=== PATIENT | male | born 1990 | race Caucasian/White ===

== ENCOUNTER 2025-02-18 14:12 | Outpatient (OUT) | payer BC, SELFPAY ==
--- OUTSIDE RECORDS SUMMARY | 2024-07-10 12:00 | XMS_ITS ---
Author Organization [facility] Address [address] [place] [address] Care Team Providers Care Sizer Machine Name Role Phone Giacomo Krystin Primary Care Provider REASON FOR VISIT 3 month f/u Encounters Encounter Location Date Provider Diagnosis [facility] [address] [place] [address] 07/10/2024 Krystin Gooden Plan Of Treatment Next Appt Details Provider Name:Krystin Samuelsethanmauri ine, 06/08/2025 04:00:00 PM, [address] [facility] [place], [address], Progress Notes * ALEJANDRINA BOWMAN ADOB:01/1990 (35 yo M)Acc No.[id number]:07/10/2024 Behavioral Health Patient: Merrill ALEJANDRINA PECK Appointment Provider: VARGHESE DARLING :1990 A ge:34 Y S ex:Male Date:07/10/2024 Address:[address] [place], [place] [id number] Subjective: * Chief Complaints: * 1 . 3 month f/u. * Medical History: Objective: * Vitals: Assessment: Plan: * Treatment: * Images: * Electronic signature of VALERIE Church i on 02/18/2025 at 02:14 PM EDT Sign off status: Pending * Appointment Provider: VALERIE DARLING-BC Date: 1 Generated for Bereket ruelas/Juanita/Edna on: 0 02/18/2025 02:14 PM EDT
--- OUTSIDE RECORDS SUMMARY | 2024-11-04 12:00 | XMS_ITS ---
Author Organization [facility] in [place] Address [address] [place] [address] Care Team Providers Care Bark Peeler Name Role Phone Angela Morris Primary Care Provider [phone] Allergies No Known Allergies Reason For Referral Reason nausea and vomiting over last year Diagnosis 1 Nausea & vomiting (R 11.2) Referral Organization [facility] Referring Provider First Name Angela Referring Provider Last Name Arturo Referring Provider Speciality Family Med [facility] Referred Provider Kendra Fang Referred Provider Specialty Gastroentero logy Referral Priority Routine REASON FOR VISIT 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., Having issues with vomiting off and on since November 2023 Medications Medication SIG (Take, Route, Fr equency, Duration) Notes Start Date End Date Status Omeprazole 20 MG 1 capsule 1/2 to 1 h our before morning meal Orally Once a day for 30 days 11/04/2024 Active Ondansetron HCl 4 MG 1 tablet Orally BID prn for 14 days 11/04/2024 Active Zoloft 25 MG 1 tablet Orally Once a day Active Social History Tobacco Use: Social History Observation Description Date Details (start date - stop date) Never Smoker NA - NA Tobacco Control (Standard) Question Answer Notes Tobacco use: Nonsmoker AUDIT-C (Standard) Question Answer Notes Did you have a drink containing alcohol in the p ast year? No Points 0 Interpretation Negative Problems Problem Type SNOMED Code ICD Code Onset Dates Problem Status W/U Status Risk Notes Problem Anxiety (01280222) Anxiety (F41.9) Active confirmed Problem Arthritis (5966573) Arthritis (M19.90) Active confirmed Vital Signs Weight 187 lbs 11/04/2024 Height 68 in 11/04/2024 Blood pressure systolic 112 mm Hg 11/04/19 25 Blood pressure diastolic 68 mm Hg 025 BMI 28.43 kg/m2 11/04/2024 Encounters Encounter Location Date Provider Diagnosis [facility] [address] [place] [address] 11/04/2024 Angela Morris Nausea & vomiting R11.2 Assessments Encounter Date Diagnosis (ICD Code) Assessment Notes Treatment Notes Treatment Clinical Notes Section Notes 11/04/2024 Nausea & vomiting (ICD-10 - R11.2) GI referral work on diet, whole foods, less processed decrease caffeine , increase water Plan Of Treatment Medication Medication Name Sig Start Date Stop Date Notes Omeprazole 20 MG 1 capsule 1/2 to 1 h our before morning meal Orally Once a day for 30 days 11/04/2024 Ondansetron HCl 4 MG 1 tablet Orally BID prn for 14 days 0 11/04/2024 Treatment Notes Assessment Notes Nausea & vomiting GI referral work on diet, whole foods, less processed decrease caffeine , increase water Referrals Referral Date Details 11/04/2024 11/04/2024, nausea a nd vomiting over last year, Kendra Fang Next Appt Details Follow Up: 1 Year,prn, Reaso n: Progress Notes * Juarez BOWMANDOB: 8 (34 yo M)Acc No.[id number]:11/04/2024 New Patient Patient: Juarez CHAHAL Provider: Sherrell Morris ([facility]), RING BARKER OPERATOR :1990 A ge:34 Y S ex:Male Date:11/04/2024 Address:[address] [place], [place] [id number] Check In:03:43 PM ESTCheck O ut:04:16 PM EST Subjective: * Chief Complaints: * 1 . 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 2. Having issues with vomiting off and on since November 2023. * HPI: G eneral: N and V started November last year kind of went away last 3-4 months more noticeable throwing up once- twice at least every other day worse after eats but sometimes clear liquid no complaints of heartburn feels tense, and than feels nauseous, sometimes throws up sometimes standing still, taking sips water anxiety a lot in 2020 still on sertraline, he hasnt noticed difference, notices difference childhood trauma did go to counseling 2020, marital counseling 2019 and 2020 4 kids between 2 of them, doing well no marijuana use no stomach pains, cramping bad gas worse last 2 year or two couple BM day , soft formed home cooked dinner, lunch meat sandwich, chips , cookies, for lunch, some breakfast sandwiches from [employer], fast food mt dew , coffee, energy drink, a lot of caffeine no alcohol use doesnt have panic attacks, anxiety not overtaking life some depression, anger issues in past, has improved. D epression Screening: PHQ-9 L ittle interest or pleasure in doing things?Several days F eeling down, depressed, or hopeless S everal days T rouble falling or staying asleep, or sleeping too much S everal days F eeling tired or having little energy N ot at all P oor appetite or overeating N ot at all F eeling bad about yourself or that you are a failure, or have let yourself or your family down M ore than half the days T rouble concentrating on things, such as reading the newspaper or watching television N ot at all M oving or speaking so slowly that other people could have noticed; or the opposite, being so fidgety or restless that you have been moving around a lot more than usual N ot at all T houghts that you would be better off or of hurting yourself in some way S everal days (Consider Suicide Assessment Risk) T otal Score 6 I nterpretation M ild Depression * ROS: G eneral/Constitutional: Anxiety f eels tense at times related to nausea. F ever?denies. H eadache d enies. W eight loss d enies. O phthalmologic: Discharge d enies. E ye Pain d enies. I tching and redness d enies. E NT: Nasal discharge d enies. N manny congestion d enies.?Sore throat d enies. C ardiovascular: Chest tightness/ heavy pressure d enies. R apid heart rate d enies. S welling of extremities d enies. C hest pain d enies. ? R espiratory: Productive cough d enies. C hest pain d enies. C ough d enies. S hortness of breath d enies. W heezing d enies. ? G astrointestinal: Patient complaining of g as. A bdominal pain d enies. C onstipation d enies. D ecreased appetite d enies. D iarrhea d enies.?Nausea a dmits. V omiting a dmits. G enitourinary: Urinary incontinence d enies. P ainful urination d enies. M usculoskeletal: Back pain d enies. N elvira pain d enies. M uscle aches d enies. S kin: Rash d enies. S kin lesion(s) d enies. ? * Active Problem List F41.9 Anxiety Modified On:11/04/2024W/U Status:confirmed M19.90 Arthritis Modified On:11/04/2024/U Status:confirmed * Medical History: A nxiety, Arthritis. * Surgical History: r epair of club feet . * Family History: F ather: , diagnosed with Unspecified heart disease. M other: alive. P aternal Grandfather: , throat cancer. * Social History: T obacco Use: T obacco Control (Standard) T obacco use: N onsmoker D rug/Alcohol: A KENTRELL-C (Standard) D id you have a drink containing alcohol in the past year? N o P oints 0 I nterpretation N egative * Medications: T aking Zoloft(Sertraline HCl) 25 MG Tablet 1 tablet Orally Once a day , Medication List reviewed and reconciled with the patient * Allergies: N .K.D.A. Objective: * Vitals: W t:187lbs, Ht: 68 in, BP:112/68mm Hg, BMI:28.43Index, Ht-cm: 172.72 cm, Wt-k.82 kg. * Examination: G eneral Examinations: GENERAL APPEARANCE: a lert and oriented, i n no acute distress. EYES: c onjunctiva normal, sclera non-icteric. NOSE: n ormal external appearance. LUNGS: c lear to auscultation bilaterally. CARDIO: r egular rate and rhythm, S1, S2 normal. ABDOMEN: s oft, nontender,, active bowel sounds. MUSCULOSKELETAL: G ait and station normal. SKIN: w arm and dry. Assessment: * Assessment: 1. N ausea & vomiting - R11.2 (Primary) Plan: * Treatment: * Preventive Medicine: Screenings/Counseling: B IN ACTION PLAN Above Normal BMI Follow-up D ietary management education, guidance, and counseling See treatment section of progress note for complete details of management plan. * Follow Up: 1 Year,prn * * Electronically signed by Lisa Morris , AUTUMN, HUMAN RESOURCES OPERATIONS MANAGER.RING BARKER [id number] on 11/06/2024 at 11:59 AM EST Sign off status: Completed Visit Status: C HK (Check Out) true * Provider: Sherrell Morris ([facility]), RING BARKER OPERATOR Date: 0 11/04/2024 Generated for Sierrai jessenia/Juanita/eTransmitting on: 0 02/18/2025 02:15 PM EDT History and Physical Notes * HPI (History of Present Illness) Category Sub-Category Detail Notes Category Not es Depression Screening PHQ-9 Little inte rest or pleasure in doing things: Several days Feeling down, depressed, or hopeless: Se veral days Trouble falling or staying asleep, or sl eeping too much: Several days Feeling tired or having little energy: N ot at all Poor appetite or overeating: Not at all Feeling bad about yourself o r that you are a failure, or have let yourself or your family down: More than half the days Trouble concentrating on thi ngs, such as reading the newspaper or watching television: Not at all Moving or speaking so slowly that other people could have noticed; or the opposite, being so fidgety or restless that you have been moving around a lot more than usual: Not at all Thoughts that you would be b shanta off or of hurting yourself in some way: Several days (Consider Suicide Assessment Risk) Total Score: 6 Interpretation: Mild Depression General N and V started November last year kind of went away last 3-4 months more noticeable throwing up once- twice at least every other day worse after eats but sometimes clear liquid no complaints of heartburn feels tense, and than feels nauseous, sometimes throws up sometimes standing still, taking sips water anxiety a lot in 2020 still on sertraline, he hasnt noticed difference, notices difference childhood trauma did go to counseling 2020, marital counseling 2019 and 2020 4 kids between 2 of them, doing well no marijuana use no stomach pains, cramping bad gas worse last 2 year or two couple BM day , soft formed home cooked dinner, lunch meat sandwich, chips , cookies, for lunch, some breakfast sandwiches from [employer], fast food mt dew , coffee, energy drink, a lot of caffeine no alcohol use doesnt have panic attacks, anxiety not overtaking life some depression, anger issues in past, has improved Examination Category Sub-Category Detail Notes Category Not es General Examinations GENERAL APPEARANCE: alert a nd oriented, in no acute distress EYES: conjunctiva normal, sclera non-icteric EARS: NOSE: normal external appe arance THROAT: CARDIO: regular rate and rhy thm, S1, S2 normal LUNGS: clear to auscultatio n bilaterally ABDOMEN: soft, nontender,, ac tive bowel sounds SKIN: warm and dry BACK: MUSCULOSKELETAL: Gait and station nor mal LYMPH NODES: Consultation Request Notes Referral Date Referring Provider Referred Provider Not es 11/04/2024 Angela Morris Muhammad nausea a nd vomiting over last year
--- OUTSIDE RECORDS SUMMARY | 2025-02-10 05:08 | XMS_ITS ---
Author Organization [facility] in [place] Address [address] [place] [address] Care Team Providers Care Clerk Cashier Name Role Phone Angela Morris Primary Care Provider [phone] REASON FOR VISIT labs Encounters Encounter Location Date Provider Diagnosis [facility] [address] [facility] [place] [address] 02/10/2025 Angela Morris Plan Of Treatment No Information Progress Notes * Juarez LODOB: 8 (35 yo M)Acc No.[id number]:02/10/2025 Patient: Juarez CHAHAL :1990 A ge:35 Y S ex:Male Address:[address] [place] [address], [facility] Subjective: * Chief Complaints: * L abs * Medical History: * Surgical History: * Hospitalization/Major Diagno stic Procedure: * Medications: Objective: * Vitals: * Physical Examination: Assessment: Plan: * Treatment: * Procedure Codes: * true * Date: Generated for Printi ng/Faxing/eTransmitting on: 0 02/18/2025 02:14 PM EDT
--- OUTSIDE RECORDS SUMMARY | 2025-02-12 10:05 | XMS_ITS ---
Author Organization [facility] in [place] Address [address] [place] [address] Care Team Providers Care Network Operations Technician Name Role Phone Angela Morris Primary Care Provider [phone] REASON FOR VISIT labs Encounters Encounter Location Date Provider Diagnosis [facility] [address] [facility] [place] [address] 02/12/2025 Angela Morris Encounter for examination for admission to [facility] Z02.0 Assessments Encounter Date Diagnosis (ICD Code) Assessment Notes Treatment Notes Treatment Clinical Notes Section Notes 02/12/2025 Encounter for examination for admission to [facility] (ICD-10 - Z02.0) Plan Of Treatment Pending Test Test Name Order Date MMR Immunity (LC) 02/12/2025 Varicella Zoster Abs, IgG/IgM 02/12/2025 Hep B Surface Ab 02/12/2025 Progress Notes * WALLYJuarez PURIDOB: 8 (35 yo M)Acc No.[id number]:02/12/2025 Patient: Juarez CHAHAL :1990 A ge:35 Y S ex:Male Address:[address] [place] [address], [address] Subjective: * Chief Complaints: * L abs * Medical History: * Surgical History: * Hospitalization/Major Diagno stic Procedure: * Medications: Objective: * Vitals: * Physical Examination: Assessment: * Assessment: 1. E ncounter for examination for admission to [facility] - Z02.0 (Primary) ? Plan: * Treatment: * Procedure Codes: * true * Date: Generated for Bereket ruelas/Juanita/Edna on: 0 02/18/2025 02:15 PM EDT
--- OUTSIDE RECORDS SUMMARY | 2025-02-18 14:14 | XMS_ITS | Patient Health Record ---
Author Organization [facility] Address [address] [place] [address] Care Team Providers Care Stage Set Up Worker Name Role Phone Krystin Gooden Primary Care Provider [phone] Allergies No Known Allergies Reason For Referral No Information Medications Medication SIG (Take, Route, Frequency, Duration) Notes Start Date End Date Status Ondansetron HCl 4 MG TAKE 1 TABLET BY MO UTH TWICE A DAY NEEDED FOR 14 DAYS Oral for 18 Days Active Omeprazole 20 MG TAKE 1 CAPSULE BY MO UT EVERY DAY 1/2 TO 1 HOUR BEFORE MORNING MEAL FOR 30 DAYS Oral for 30 Days Active ARIPiprazole 5 MG TAKE 1 TABLET BY KIN EVERY DAY FOR 30 DAYS Orally Once a day for 30 day(s) Not-Taking traZODone HCl 50 MG 1 or 2 tablets at be dtime as needed Orally Once a day for 30 days 10/03/2023 Not-Taking Sertraline HCl 25 MG TAKE 1 TABLET BY MO UTH EVERY DAY for 30 days Active busPIRone HCl 7.5 MG 1 tablet Orally Twi ce a day for 30 days Active Social History Tobacco Use: Social History Observation Description Date Details (start date - stop date) Never Smoker NA - NA Tobacco Screen: Question Answer Notes Are you a: never smoker Alcohol Screening: Question Answer Notes Did you have a drink containing alcohol in the p ast year? No Points 0 Interpretation Negative Depression Screening (PHQ-9): Question Answer Notes Little interest or pleasure in doing things Not at all Feeling down, depressed, or hopeless Several day s Trouble falling or staying asleep, or sleeping t oo much Not at all Feeling tired or having little energy Not at all Poor appetite or overeating Not at all Feeling bad about yourself-o r that you are a failure or have let yourself or your family down Not at all Trouble concentrating on thi ngs, such as reading the newspaper or watching television Several days Moving or speaking so slowly that other people could have noticed. Or the opposite being so fidgety or restless that you have been moving around a lot more than usual Not at all Thoughts that you would be b shanta off , or of hurting yourself in some way Not at all Total Score 2 Intepretation Minimal Depression Problems Problem Type SNOMED Code ICD Code Onset Dates Problem Status W/U Status Risk Notes Problem [id number] Generalized anxiety disorder (F41.1) Active confirmed Vital Signs Heart Rate 77 /min 12/01/2024 Oximetry 98 % 12/01/2024 Blood pressure diastolic 81 mm Hg 12/01/2024 Height 68 in 12/01/2024 Blood pressure systolic 138 mm Hg 12/01/2024 Weight 188.4 lbs 12/01/2024 BMI 28.64 kg/m2 12/01/2024 Encounters Encounter Location Date Provider Diagnosis [facility] [address] [place] [address] 10/30/2024 Krystin Slingwine Generalized anxiety disorder F41.[address] [place] [address] 12/01/2024 Krystin Slingwine Generalized anxiety disorder F41.1 [facility] [address] [place] [address] 04/09/2024 Krystin Slingwine Generalized anxiety disorder F41.1 Assessments Encounter Date Diagnosis (ICD Code) Assessment Notes Treatment Notes Treatment Clinical Notes Section Notes 04/09/2024 Generalized anxiety disorder (ICD-10 - F41.1) 10/30/2024 Generalized anxiety disorder (ICD-10 - F41.1) 12/01/2024 Generalized anxiety disorder (ICD-10 - F41.1) Recommended treatment is: _ FDA approved medication for this age group include Selective Serotonin Reuptake Inhibitors (SSRI) and Selective Norepinephrine Reuptake Inhibitors (SNRI). . Selective serotonin reuptake inhibitors? can cause nausea, headache, upset stomach, diarrhea, constipation, anxiety, irritability, and sexual dysfunction. Buspar is a medication used for anxiety. The medication can cause dizziness, sedation, and restless. Please contact the office if you experience these symptoms. The medication typically takes 2-4 weeks to achieve efficacy. Made aware to contact office if symptoms worsen. . Please monitor for worsening of symptoms, especially suicidal ideations or morbid thoughts, and call office and or go to the emergency department immediately. Pt does not endorse exhibiting symptoms aligning with nancy. . The patient verbalizes understanding with all questions answered thoroughly and is in agreement with treatment plan. . Continue current treatment plan Patient/Guardian will call sooner if symptoms worsen. Patient understands to go to ER if needed if symptoms become severe. Crisis Intervention plan was discussed and agreed upon. Patient/Guardian will call 911 in case of emergency. Emergency contact information was provided to the patient/guardian. . Informed consent obtained: YES, we discussed the diagnosis/diagnoses , the treatment options, treatment(s) recommended vs. no treatment. We discussed risks and benefits of treatment options, treatment recommendations vs. no treatment. . . Pt is to continue current treatment plan Has good tolerability and compliance with medication Call for problems All questions and concerns discussed . 04/09/2024 Other follow up in 3 month Educated on new antidepressant. Made aware of Black Box Warning that it can increase suicidal thoughts, especially in minors. If this happens go to the ER. Make the office aware or go to the ER, if you experience seizures or an increase in activity and irritability. Made aware to not abruptly stop medication. Medication can cause headache and nausea. . Denies suicidal or homicidal ideation or plan. No morbid thoughts. Interpersonal issues discussed. Support provided Insight oriented/ Behavior modifying/ Supportive therapy . Buspar is a medication used for anxiety. The medication can cause dizziness, sedation, and restless. Please contact the office if you experience these symptoms. The medication typically takes 2-4 weeks to achieve efficacy. Made aware to contact office if symptoms worsen. Patient educated about the importance of adequate sleep to your mental health. The bedroom should be kept dark to promote restful sleep. The patient should not use their phone or watch TV while in bed, these behaviors can be stimulating and keep the patient awake. . Informed consent obtained: YES, we discussed the diagnosis/diagnoses , the treatment options, treatment(s) recommended vs. no treatment. We discussed risks and benefits of treatment options, treatment recommendations vs. no treatment. . Plan Of Treatment Next Appt Details Provider Name:Krystin shine, 06/08/2025 04:00:00 PM, [address], [place], [address], Insurance Providers Payer Name Payer Address Payer Phone Subscriber Number Group Number Insured Name Patient Relationship to Insured Coverage Start Date Coverage End Date ANTHEM Primary [address] [place] [phone] [id number] ALEJANDRINA BOWMAN Self - patient is the insured 2 Medical (General) History Medical History History ICD Code anxiety Surgical History Surgery Date(Month/Year) Bilateral foot & ankle, club foot repair x7 Hospitalization History Reason Date(Month/Year) See Surgical Hx.
--- OUTSIDE RECORDS SUMMARY | 2025-02-18 14:15 | XMS_ITS | Clinical Summary ---
Author Organization [facility] Address [address] [place] [address] Care Team Providers Care Code Enforcement Supervisor Name Role Phone Unavailable Primary Care Provider Unavailabl e Allergies No known active allergies Medications No known medications Social History Tobacco Use Types Packs/Day Years Used Date Smoking Tobacco: Never Assessed AUDIT-C Answer Date Recorded Q1: How often do you have a drink containing alcohol? Never 11/27/2023 Q2: How many drinks containi ng alcohol do you have on a typical day when you are drinking? Patient does not drink Q3: How often do you have si x or more drinks on one occasion? Never 11/27/2023 Sex and Gender Information Value Date Recorded Sex Assigned at Not on file Legal Sex Male 6:26 PM EDT Gender Identity Not on file Sexual Orientation Not on file Last Filed Vital Signs Vital Sign Reading Time Taken Comments Blood Pressure 132/96 11/27/2023 6:33 PM EDT Pulse 85 11/27/2023 6:32 PM EDT Temperature 36.2 C (97.2 F) 11/27/2023 6:33 PM EDT Respiratory Rate 16 11/27/2023 6:32 PM EDT Oxygen Saturation 99% 11/27/2023 6:32 PM EDT Inhaled Oxygen Concentration - - Weight 81.6 kg (180 lb) 11/27/2023 6:32 PM EDT Height 170.2 cm (5' 7 ) 11/27/2023 6:32 PM EDT Body Mass Index 28.19 11/27/2023 6:32 PM EDT Plan of Treatment Health Maintenance Due Date Last Done Comments Depression Screen 2000 Varicella vaccine (1 of 2 - 13+ 2-dose series) 01/19/2001 HIV screen 01/19/2003 Hepatitis C screen 01/19/2006 DTaP/Tdap/Td vaccine (1 - Tdap) 01/19/2007 Hepatitis B vaccine (1 of 3 - 19+ 3-dose series) 01/19/2007 COVID-19 Vaccine (1 - 2023-2 5 season) 2024 Flu vaccine (Season Ended) 2025 HPV vaccine Aged Out No longer eligi ble based on patient's age to complete this topic Hepatitis A vaccine Aged Out No longe r eligible based on patient's age to complete this topic Hib vaccine Aged Out No longer eligi ble based on patient's age to complete this topic Meningococcal (ACWY) vaccine Aged Out No longer eligible based on patient's age to complete this topic Meningococcal B vaccine Aged Out No l onger eligible based on patient's age to complete this topic Pneumococcal 0-49 years Vaccine Aged Out No longer eligible based on patient's age to complete this topic Polio vaccine Aged Out No longer elig ible based on patient's age to complete this topic Insurance [place]
--- OUTSIDE RECORDS SUMMARY | 2025-02-18 14:15 | XMS_ITS | Clinical Summary ---
Author Organization [facility] Address [address] [place], [place] [id number] Care Team Providers Care Electrician Substation Name Role Phone Unavailable Primary Care Provider Unavailabl e Social History Tobacco Use Types Packs/Day Years Used Date Smoking Tobacco: Never Assessed Sex and Gender Information Value Date Recorded Sex Assigned at Not on file Legal Sex Male 1:04 PM EDT Gender Identity Not on file Sexual Orientation Not on file Plan of Treatment Not on file Insurance [employer] Member Subscriber Plan / Payer (Ef fective 2014-Present) Name:Wally Goyo Garibay Relation to Subscriber:Self Name:Juarez Lorachael Garibay Payer ID:[id number] (NAIC) Type:PPO Address: [facility] [id number] MEDICAID
--- OUTSIDE RECORDS SUMMARY | 2025-02-18 14:15 | XMS_ITS | Patient Health Record ---
Author Organization [facility] in [place] Address [address] [place] [address] Care Team Providers Care Manometer Technician Name Role Phone Angela Morris Primary Care Provider [phone] Allergies No Known Allergies Reason For Referral Reason nausea and vomiting over last year Diagnosis 1 Nausea & vomiting (R 11.2) Referral Organization [facility] Referring Provider First Name Angela Referring Provider Last Name Arturo Referring Provider Speciality Family Med zheng Referred Provider Kendra Fang Referred Provider Specialty Gastroentero logy Referral Priority Routine Medications Medication SIG (Take, Route, Fr equency, [...] Status W/U Status Risk Notes Problem Anxiety (70395234) Anxiety (F41.9) Active confirmed Problem Arthritis (3376026) Arthritis (M19.90) Active confirmed Vital Signs Blood pressure diastolic 68 mm Hg 11/04/2024 Height 68 in 11/04/2024 Blood pressure systolic 112 mm Hg 11/04/2024 Weight 187 lbs 11/04/2024 BMI 28.43 kg/m2 11/04/2024 Encounters Encounter Location Date Provider Diagnosis [facility] [address] [place] [facility] [address] 02/10/[address] [facility] [address] [place] [facility] [place] [address] 02/12/2025 Angela Morris Encounter for examination for admission to [facility] Z02.0 [facility] [address] [place] [address] 11/04/2024 Angela Morris Nausea & vomiting R11.2 Assessments Encounter Date Diagnosis (ICD Code) Assessment Notes Treatment Notes Treatment Clinical Notes Section Notes 11/04/2024 Nausea & vomiting (ICD-10 - R11.2) GI referral work on diet, whole foods, less processed decrease caffeine , increase water 02/12/2025 Encounter for examination for admission to [facility] (ICD-10 - Z02.0) Plan Of Treatment Pending Test Test Name Order Date MMR Immunity (LC) 02/12/2025 Varicella Zoster Abs, IgG/IgM 02/12/2025 Hep B Surface Ab 02/12/2025 Insurance Providers Payer Name Payer Address Payer Phone Subscriber Number Group Number Insured Name Patient Relationship to Insured Coverage Start Date Coverage End Date [employer] PPO PLUS LOCAL PLAN [address] [place] [phone] [id number] Juarez Lo Self - patient is the insured Medical (General) History Medical History History ICD Code Anxiety F41.9 Arthritis M19.90 Surgical History Surgery Date(Month/Year) repair of club feet EGD 12/17/24
[2025-02-19 06:09] LABS: Hep B Surface Ab Non Reactive (.); Mumps Abs, IgG 26.6 AU/mL (Immune >10.9); Rubella Antibodies, IgG 1.97 index (Immune >0.99); Varicella-Zoster V Ab, IgG Reactive (Non Reactive)
== END 2025-02-18 14:13 | disposition home or self-care (01) ==
LOC: LAB 14:12
PROVIDERS: PCP Nurse Practitioner Family; Visit Provider Nurse Practitioner Family
DX: Z02.0 Encounter for examination for admission to educational institution (principal)
CPT/HCPCS: 36415; 86706; 86735; 86762; 86765; 86787